=== PATIENT | male | born 1970 | race Caucasian/White ===

== ENCOUNTER 2017-11-30 08:11 | Observation (INO) ==
[2017-11-30 08:42] LABS: Basophils % 0.3 % (0.1-2.0); Eosinophils # 0.3 K/mm3 (0.0-0.4); Eosinophils % 3.8 % (0.1-12.0); Hematocrit 53.5 % (42.0-52.0); Lymphocytes # 1.1 K/mm3 (0.7-4.5); Lymphocytes % 12.5 K/mm3 (10-50); Mean Corpuscular HGB Conc 34.2 g/dL (31.8-35.4); Mean Corpuscular Hemoglobin 29.6 pg (27.0-31.2); Mean Corpuscular Volume 86.6 fl (80-94); Mean Platelet Volume 7.6 fl (7.4-10.4); Monocytes # 0.4 K/mm3 (0.1-1.0); Monocytes % 4.7 % (1.7-9.3); Neutrophils # 6.7 K/mm3 (1.8-7.8); Neutrophils % 78.6 % (37.0-80.0); Platelet Count 260 K/mm3 (142-424); Red Blood Count 6.17 M/mm3 (4.60-6.20); Red Cell Distribution Width 12.3 % (11.5-17.5); White Blood Count 8.6 K/mm3 (4.8-10.8)
[2017-11-30 08:54] LABS: Hemoglobin 18.3 g/dL (14.1-18.0)
--- NOTE | 2017-11-30 08:58 | Emergency Department Note ---
ED Disposition Clinical Impression: Unstable angina, Obesity (BMI 30-39.9), Family history of coronary arteriosclerosis Disposition: Still a Patient Condition on Discharge: Fair - Critical Care Critical Care Time: No Attestation: On 11/30/17, the high probability of a clinically significant, sudden or life threatening deterioration of the following system(s) required my full and direct attention, intervention and personal management. The time I documented below is in addition to time spent performing reported procedures but includes the following listed in this critical care notation. Medical Decision Making - Gary Inquiry Pt receiving controlled substance: No Gary was queried for this patient: No Vital Signs: 11/30/17 08:12 11/30/17 09:12 11/30/17 10:24 Temperature 98.2 F Temperature Source Oral Pulse Rate Pulse Rate [Right Radial] 98 H 80 86 Respiratory Rate 16 18 18 Blood Pressure Blood Pressure [Right Arm] 154/100 133/71 130/86 Blood Pressure Mean [Right Arm] 118 91 100 Blood Pressure Source Blood Pressure Source [Right Arm] Automatic Cuff Automatic Cuff Automatic Cuff Blood Pressure Position Blood Pressure Position [Right Arm] Sitting Sitting Supine 02 Sat by Pulse Oximetry 95 98 97 Oxygen Delivery Method Room Air Room Air Room Air 11/30/17 10:38 Temperature 98.1 F Temperature Source Temporal Artery Scan Pulse Rate 72 Pulse Rate [Right Radial] Respiratory Rate 18 Blood Pressure 142/73 Blood Pressure [Right Arm] Blood Pressure Mean [Right Arm] Blood Pressure Source Automatic Cuff Blood Pressure Source [Right Arm] Blood Pressure Position Sitting Blood Pressure Position [Right Arm] 02 Sat by Pulse Oximetry Oxygen Delivery Method Room Air - Lab Data Lab Results 11/30/17 08:30: WBC 8.6, RBC 6.17, Hgb 18.3 H*, Hct 53.5 H, MCV 86.6, MCH 29.6, MCHC 34.2, RDW 12.3, Plt Count 260, MPV 7.6, Neut % (Auto) 78.6, Lymph % (Auto) 12.5, O'Brien % (Auto) 4.7, Eos % (Auto) 3.8, Baso % (Auto) 0.3, Neut # (Auto) 6.7 , Lymph # (Auto) 1.1, O'Brien # (Auto) 0.4, Eos # (Auto) 0.3, Baso # (Auto) 0.0 11/30/17 08:30: D-Dimer < 100 11/30/17 08:30: Sodium 137, Potassium 4.0, Chloride 100, Carbon Dioxide 25, Anion Gap 16.0 H, BUN 24 H, Creatinine 1.14, Estimated Creat Clear 134, Estimated GFR 69, Est GFR ( Amer) 84, Glucose 125 H, Calcium 8.6, Total Bilirubin 0.6, AST 28, ALT 75, Alkaline Phosphatase 103, Total Creatine Kinase 129, CK-MB (CK-2) 0.8, CK-MB (CK-2) Rel Index 0.6, Troponin I < 0.02, Total Protein 8.0, Albumin 3.9, Globulin 4.1 H, Albumin/Globulin Ratio 1.0 L 11/30/17 08:30: B-Natriuretic Peptide < 5 Result diagrams: 11/30/17 08:30 11/30/17 08:30 Orders (Tests/Meds): ED MEDICATIONS Generic Name Dose Route Start Last Admin Trade Name Freq PRN Reason Stop Dose Admin Diphenhydramine HCl 50 mg 11/30/17 10:45 Benadryl 50mg/1ml Vial IV 11/30/17 10:46 ONCE ONE Fentanyl Citrate 25 mcg 11/30/17 10:45 Fentanyl 250mcg/5ml Vial IV 12/01/17 10:45 Q3MINP PRN Moderate to Severe Pain Fentanyl Citrate 50 mcg 11/30/17 10:45 Fentanyl 250mcg/5ml Vial IV 12/01/17 10:45 Q3MINP PRN Moderate to Severe Pain Flumazenil 0.2 mg 11/30/17 10:45 Romazicon 0.1mg/Ml 5ml Vial IV 11/30/17 23:00 NEEDED PRN Sedation Heparin Sodium (Porcine) 10,000 unit 11/30/17 10:45 Heparin 1,000 Units/Ml 10ml Vial (Senior Radiation Protection Technician) IV 11/30/17 14:45 NEEDED PRN Emergency Box Bag Cutter Heparin Sodium/Sodium Chloride 3,000 unit 11/30/17 10:45 Heparin 1000 Units/500ml Ns (Senior Radiation Protection Technician) IV 11/30/17 10:46 ONCE ONE Sodium Chloride 1,000 mls @ 25 mls/hr 11/30/17 10:45 Sod Chlor 0.9% 1000ml Bag IV 12/01/17 10:45 .Q25H ANNA Lidocaine HCl 20 ml 11/30/17 10:45 Lidocaine 1% 20ml Mdv IJ 11/30/17 10:46 ONCE ONE Midazolam HCl 1 mg 11/30/17 10:45 Midazolam 2mg/2ml Vial IV 12/01/17 10:45 Q3MINP PRN Sedation Midazolam HCl 1 mg 11/30/17 10:45 Midazolam 1mg/Ml 5ml Vial IV 12/01/17 10:45 Q3MINP PRN Sedation Naloxone HCl 0.4 mg 11/30/17 10:45 Narcan 0.4mg/Ml Vial IV 12/01/17 10:45 Q5MINP PRN Decreased respirations Nitroglycerin 800 mcg 11/30/17 10:45 Nitroglycerin 800mcg/8ml Syr (Senior Radiation Protection Technician) IV 12/01/17 10:45 NEEDED PRN Emergency Box Bag Cutter Sodium Chloride 10 ml 11/30/17 10:45 Saline Flush 10ml Syringe IV 12/30/17 10:44 NEEDED PRN Maintain IV Site Verapamil HCl 2.5 mg 11/30/17 10:45 Verapamil 2.5mg/Ml 2ml Vial IV 11/30/17 10:46 ONCE ONE ORDERS Category Date Time Status ECG Request by /Nse Stat Y 11/30/17 08:29 Ordered - Radiology Data #1 Image(s): Chest Image Reviewed: Yes I reviewed the patient's radiology image, Yes I have reviewed radiologist's interpretation Preliminary Findings: Normal/NAD - ECG Data Tracing #1 Sinus tachycardia 106 baseline artifact Q waves in inferior no acute findings. ECG initial impression date: 11/30/17 ECG initial impression time: 08:58 Medical Decision Narrative: The patient remained asymptomatic I obtained his negative dimer for PE and negative troponin for an OK. I discussed with the glaze mixer about his progressive dyspnea and episodes of intermittent chest pain there was high suspicion for unstable angina. He would be admitted to Dr. Calvin and later evaluated by the glaze mixer for possible cardiac catheterization. Patient requests Dr. Calvin to be his primary care physician and Dr. Calvin agreed. Chest Pain HPI - General Chief Complaint: Chest Pain Stated Complaint: Chest pain Time Seen by Provider: 11/30/17 08:20 Mode of Arrival: Ambulatory Limitations: No Limitations Description of Symptoms (Recalled from ER Triage Doc. by RN): Chest Pressure - History of Present Illness HPI narrative: 47 years old white male with no significant past medical history who presented to the ED with intermittent chest pressure type pain radiating to his back since yesterday. He describes the chest pain as pressure type rated 3/10 that lasted for 3 hours yesterday from 4 to 7 PM and 30 minutes this morning from 5 to 5:30 in the morning, it is associated with a burning pain in between the shoulder blades and nausea. the patient reported progressive exertional dyspnea for the past few months. He denies palpitations hemoptysis fever chills or productive sputum. MD complaint: chest pain Onset (ago): day(s) Time: 05:30 Duration: intermittent Activity at onset: during rest Pain location: left chest Severity: mild Severity scale (1-10): 3 Quality: tightness, other (Pressure type pain.) Pain radiation: back Exacerbating factors: nothing Risk Factors for CAD: Family Hx of CAD Treatments prior to or on arrival for Cardiac Chest Pain: none - Related Data Home Medications Medication Instructions Recorded Confirmed Omeprazole Magnesium [Prilosec Otc 20 mg PO DAILY 11/30/17 11/30/17 20mg Tab] Allergies Allergy/AdvReac Type Severity Reaction Status Date / Time NO KNOWN ALLERGIES Allergy Uncoded 08/17/17 15:27 [facility] History I have reviewed the patient's past medical history: Yes Amputation: No Fractures: No - Social History Educational Level: Completed High School Smoking Status: Never smoker Alcohol Intake: never - Psychiatric History Expresses thoughts of harming self/others: None Suicide Plan Description: No Plan ROS Obtained: Yes All systems reviewed & no additional complaints Physical Exam - General General appearance: alert, in no apparent distress, other (Obese and pleasant. ) - Head Head exam: atraumatic, normocephalic, normal inspection - Eye Eye exam: Present: normal appearance, PERRL, EOMI - ENT ENT exam: Present: normal exam, normal oropharynx, mucous membranes moist, TM's normal bilaterally, normal external ear exam - Neck Neck exam: Present: normal inspection, full ROM, trachea midline. Absent: meningismus, lymphadenopathy - Chest Chest inspection: Present: normal inspection, symmetric chest wall rise. Absent : tenderness - Respiratory Respiratory exam: Present: normal lung sounds bilaterally. Absent: respiratory distress - Cardiovascular Cardiovascular exam: Present: regular rate, normal rhythm. Absent: JVD - Abdominal Exam Abdominal exam: Present: soft, normal bowel sounds. Absent: distention, tenderness, guarding - Extremities Exam Extremities exam: Present: normal inspection, full ROM, normal capillary refill. Absent: calf tenderness - Back Exam Back exam: Present: normal inspection. Absent: tenderness - Neurological Exam Neurological exam: Present: alert, oriented X3, CN II-XII intact, motor sensory deficit - Psychiatric Psychiatric exam: Present: normal affect, normal mood - Skin Skin exam: Present: warm, dry, intact, normal color - Lymphatic Lymphatic Findings: no adenopathy
[2017-11-30 09:22] LABS: Alanine Aminotransferase 75 U/L (12-78); Alkaline Phosphatase 103 U/L (46-116); Aspartate Amino Transferase 28 U/L (15-37); Bilirubin,Total 0.6 mg/dL (0.2-1.0); Blood Urea Nitrogen 24 mg/dL (7-18); Calcium 8.6 mg/dL (8.5-10.1); Carbon Dioxide 25 mmol/L (21.0-32.0); Chloride 100 mmol/L (98-107); Glucose 125 mg/dL (74-106); Sodium 137 mmol/L (136-145)
[2017-11-30 10:04] LABS: Albumin Level 3.9 gm/dL (3.4-5.0); Creatine Kinase 129 U/L (39-308); Globulin 4.1 gm/dl (1.3-3.2)
--- NOTE | 2017-11-30 14:10 | History & Physical Report ---
*Admission Date: 11/30/17 <Ariane Segal 11/30/17 14:10> *History of present illness: Mr Avila is a 47 years old white male with no significant past medical history who presented to the ED with intermittent chest pressure type pain radiating to his back since yesterday. He describes the chest pain as pressure type rated 3/10 that lasted for 3 hours yesterday from 4 to 7 PM and 30 minutes this morning from 5 to 5:30 in the morning. The pain is associated with a burning pain in between the shoulder blades and nausea. The patient reported progressive exertional dyspnea for the past few months. He denies palpitations , hemoptysis, fever chills or productive sputum. He was evaluated in the emergency room and felt to have unstable angina with acute coronary syndrome. Patient's EKG was abnormal. His d-dimer was negative and therefore pulmonary embolism was not suspected. With his risk factors for coronary artery disease and with the classic unstable angina like symptoms for prolonged periods of time lasting 3 to 4 hours, patient was taken to the [facility]. At the time of this assessment patient has had his cardiac cath and is resting comfortably in the bed. He denies chest pain and shortness of breath at this point. Cardiac cath is noted to be normal. <Ariane Segal 11/30/17 14:42> [facility] History Medical History: Reports:: Gastroesophageal Reflux Disease(GERD) Denies:: Arrhythmia, Atherosclerotic Heart Disease, Atrial Fibrillation, BPH , Cancer, Cardiomyopathy, Congestive Heart Failure, Chronic Obstructive Pulmonary Disease (COPD), Coronary Artery Disease, Cerebrovascular Accident, Deep Vein Thrombosis, Dementia, Depression, Diabetes Mellitus Type 1, Diabetes Mellitus Type 2, Gall Bladder Disease, Gastrointestinal Bleed, Hiatal Hernia, Hyperlipidemia, Hypertension, Lung Disease, Kidney Stones, Migraine, Myocardial Infarction, Palpitations, Peripheral Artery Disease, Peripheral Vascular Disease , Pulmonary Embolism, Renal Disease, Renal Insufficiency, Seizures, Supraventricular Tachycardia, Transient Ischemic Attacks (TIA) <Ariane Segal 11/30/17 14:42> Other Medical History: Denies: Anemia, Arthritis, Hypothyroidism, Thyroid Disease <Ariane Segal 11/30/17 14:42> Other Surgeries: Yes: Hernia Repair <Ariane Segal 11/30/17 14:42> Amputation: No <Ariane Segal 11/30/17 14:10> Fractures: No <Ariane Segal 11/30/17 14:10> - *Social History Educational Level: Completed High School <Ariane Segal 11/30/17 14:10> Smoking Status: Never smoker <Ariane Segal 11/30/17 14:10> Alcohol Intake: never <Ariane Segal 11/30/17 14:10> - Psychiatric History Expresses thoughts of harming self/others: None <Ariane Segal 11/30/17 14: 10> Suicide Plan Description: No Plan <Ariane Segal 11/30/17 14:10> *Family Hx:: Cancer, Coronary Artery Disease, Diabetes <Ariane Segal 14:42> Comment: Father with pancreatic cancer. Grandparents had both ASCVD and diabetes. <Ariane Segal 11/30/17 14:42> Review of Systems - Constitutional Reports headache(s), Denies body ache(s), Denies chills, Denies fever(s), Denies weakness <Ariane Segal 11/30/17 14:42> - Eyes Denies change in vision <Ariane Segal 11/30/17 14:42> - ENT Reports headache(s), Denies abnormal hearing, Denies ear pain, Denies nasal congestion, Denies sore throat <Ariane Segal 11/30/17 14:42> - *Cardiovascular Reports chest pain, Reports shortness of breath, Denies irregular heart rhythm, Denies leg swelling, Denies rapid, pounding, or irregular heartbeat, Denies fast heart rate <Ariane Segal 11/30/17 14:42> - *Respiratory Reports shortness of breath, Denies chest congestion, Denies cough, Denies coughing up blood <Ariane Segal 11/30/17 14:42> - *Gastrointestinal Reports abdominal pain, Reports heartburn, Denies belching, Denies bloating, Denies change in bowel habits, Denies change in stools, Denies coffee ground vomit, Denies constipation, Denies loose stools, Denies difficulty swallowing, Denies vomiting blood, Denies black, tarry stools, Denies vomiting <Ariane Segal - 11/30/17 14:42> - *Genitourinary Denies difficulty urinating <Ariane Segal - 11/30/17 14:42> - *Musculoskeletal Denies abnormal walking, Denies joint pain, Denies decreased muscle mass < Segal,Ariane - 11/30/17 14:42> - *Neurologic Reports headache(s) (Occasional; relieved with Tylenol.), Denies abnormal walking, Denies abnormal hearing, Denies abnormal speech, Denies behavioral changes, Denies confusion, Denies seizure-like activity, Denies unsteadiness < PhilippAriane - 11/30/17 14:42> Meds Home Medications Medication Instructions Recorded Confirmed Type Omeprazole Magnesium [Prilosec Otc 20 mg PO DAILY 11/30/17 11/30/17 History 20mg Tab] <MarixaMisbah - 11/30/17 17:21> Allergies Allergy/AdvReac Type Severity Reaction Status Date / Time NO KNOWN ALLERGIES Allergy Uncoded 08/17/17 15:27 <Misbah Calvin - 11/30/17 17:21> Exam Vital signs and Labs for Last 24 Hours: Temp Pulse Resp BP Pulse Ox 97.9 F 70 18 123/66 95 11/30/17 16:15 11/30/17 16:15 11/30/17 16:15 11/30/17 16:15 11/30/17 16:15 <MarixaMisbah - 11/30/17 17:21> Temp Pulse Resp BP Pulse Ox 98.0 F 85 18 175/91 96 11/30/17 12:59 11/30/17 12:59 11/30/17 12:59 11/30/17 12:59 11/30/17 12:59 <SegalAriane - 11/30/17 14:10> I & O for Last 24 hours: Intake & Output 11/28/17 11/29/17 11/30/17 12/01/17 11:59 11:59 11:59 11:59 Weight 256 lb 2 oz <Misbah Calvin - 11/30/17 17:21> Intake & Output 11/28/17 11/29/17 11/30/17 12/01/17 11:59 11:59 11:59 11:59 Weight 256 lb 2 oz <Ariane Segal 11/30/17 14:10> Radiology Reports for the Last 24 Hours: 11/30/2017 chest x-ray IMPRESSION: Negative chest. <Ariane Segal 11/30/17 14:12> Narrative: 11/30/2017 heart catheterization IMPRESSION: 1. No angiographic evidence of atherosclerotic heart disease 2. Trivial an clinically insignificant myocardial bridge 3. Normal ejection fraction 4. Normal left ventricular end-diastolic pressure <Ariane Segal 11/30/17 14:12> - Constitutional no acute distress <[facility] 11/30/17 14:42> Comments: Lying comfortably in the bed after cardiac cath. Somewhat drowsy. <[facility] 11/30/17 14:42> - *Routine HEENT Exam Head: Present: normocephalic, atraumatic <[facility] 11/30/17 14:42> Eye: Present: PERRL. Absent: conjunctival icterus, scleral injection <[facility] 11/30/17 14:42> ENT: Present: mucous membranes moist, oropharynx clear <[facility] 14:42> - *Routine Neck Exam Present: supple, full ROM. Absent: carotid bruit, lymphadenopathy <Ariane Segal 11/30/17 14:42> - *Routine Respiratory Exam Present: CTA bilaterally (Anteriorly and posteriorly) <[facility] 14:42> - *Routine Cardiovascular Exam Present: RRR. Absent: murmur, gallop, rubs <Ariane Segal 11/30/17 14:42> - *Routine Abdominal Exam Present: soft, normoactive bowel sounds. Absent: tenderness, guarding < [facility] 11/30/17 14:42> - *Routine Extremities Exam Present: full ROM, pulses intact. Absent: edema, calf tenderness <[facility] 11/30/17 14:42> - *Routine Neurological Exam Present: alert, oriented X3, moving all extremities <Ariane Segal 11/30/17 14:42> Assessment and Plan (1) Atypical chest pain Current visit: Yes Status: Acute Category: Medical Code(s): R07.89 - Other chest pain (2) GERD (gastroesophageal reflux disease) Current visit: Yes Status: Chronic Category: Medical Code(s): K21.9 - Gastro-esophageal reflux disease without esophagitis (3) Family history of coronary arteriosclerosis Current visit: Yes Status: Chronic Category: Medical Code(s): Z82.49 - Family history of ischemic heart disease and other diseases of the circulatory system (4) Obesity (BMI 30-39.9) Current visit: Yes Status: Chronic Category: Medical Code(s): E66.9 - Obesity, unspecified <Misbah Calvin - 11/30/17 17:21> (1) Atypical chest pain Current visit: Yes Status: Acute Category: Medical Code(s): R07.89 - Other chest pain (2) GERD (gastroesophageal reflux disease) Current visit: Yes Status: Chronic Category: Medical Code(s): K21.9 - Gastro-esophageal reflux disease without esophagitis (3) Family history of coronary arteriosclerosis Current visit: Yes Status: Chronic Category: Medical Code(s): Z82.49 - Family history of ischemic heart disease and other diseases of the circulatory system (4) Obesity (BMI 30-39.9) Current visit: Yes Status: Chronic Category: Medical Code(s): E66.9 - Obesity, unspecified <Ariane Segal - 11/30/17 14:25> - Assessment and plan all Dx Assessment and Plan for all problems:: Saw patient, agree with above note. <Misbah Calvin - 11/30/17 17:21> PPI; <Ariane Segal - 11/30/17 14:42>
--- NOTE | 2017-11-30 20:42 | Consult Report ---
History of Present Illness Consult date: 11/30/17 Requesting physician: Misbah Calvin Consult reason: chest pain Chief complaint: Chest pain, SOA Additional Medical History:: 1. GERD 2. Chest pain, 11/2017 [facility], 11/30/2017, ANGIOGRAPHIC RESULTS: 1. The left main artery normal 2. The left anterior descending artery is proximally normal and has a very mild mid myocardial bridge causing a mild amount of systolic compression 3. The circumflex artery dominant normal 4. The right coronary artery nondominant yet still large and normal 5. The KHAN ventriculogram reveals normal 65% 6. The left ventricular end-diastolic pressure normal 10 mmHg IMPRESSION: 1. No angiographic evidence of atherosclerotic heart disease 2. Trivial an clinically insignificant myocardial bridge 3. Normal ejection fraction 4. Normal left ventricular end-diastolic pressure History of present illness: Mr Avila is a 47 years old white male with no significant past medical history who presented to the ED with intermittent chest pressure type pain radiating to his back since yesterday. He describes the chest pain as pressure type rated 3/10 that lasted for 3 hours yesterday from 4 to 7 PM and 30 minutes this morning from 5 to 5:30 in the morning. The pain is associated with a burning pain in between the shoulder blades and nausea. The patient reported progressive exertional dyspnea for the past few months. He denies palpitations , hemoptysis, fever chills or productive sputum. He was evaluated in the emergency room and felt to have unstable angina with acute coronary syndrome. Patient's EKG was abnormal. His d-dimer was negative and therefore pulmonary embolism was not suspected. With his risk factors for coronary artery disease and with the classic unstable angina like symptoms for prolonged periods of time lasting 3 to 4 hours, patient was taken to the [facility]. The above per Ariane Segal APRN for Dr. Calvin. Patient was seen by Dr. Cruz in the ER and taken to the [facility] for UAP symptoms and abnormal EKG. [facility] History Medical History: Reports:: Gastroesophageal Reflux Disease(GERD) Denies:: Arrhythmia, Atherosclerotic Heart Disease, Atrial Fibrillation, BPH , Cancer, Cardiomyopathy, Congestive Heart Failure, Chronic Obstructive Pulmonary Disease (COPD), Coronary Artery Disease, Cerebrovascular Accident, Deep Vein Thrombosis, Dementia, Depression, Diabetes Mellitus Type 1, Diabetes Mellitus Type 2, Gall Bladder Disease, Gastrointestinal Bleed, Hiatal Hernia, Hyperlipidemia, Hypertension, Lung Disease, Kidney Stones, Migraine, Myocardial Infarction, Palpitations, Peripheral Artery Disease, Peripheral Vascular Disease , Pulmonary Embolism, Renal Disease, Renal Insufficiency, Seizures, Supraventricular Tachycardia, Transient Ischemic Attacks (TIA) Other Medical History: Denies: Anemia, Arthritis, Hypothyroidism, Thyroid Disease Other Surgeries: Yes: Hernia Repair Amputation: No Fractures: No - *Social History Educational Level: Completed High School Smoking Status: Never smoker Alcohol Intake: never - Psychiatric History Expresses thoughts of harming self/others: None Suicide Plan Description: No Plan Pschychiatric History:: Denies:: Depression *Family Hx:: Cancer, Coronary Artery Disease, Diabetes Meds Allergies Allergy/AdvReac Type Severity Reaction Status Date / Time NO KNOWN ALLERGIES Allergy Uncoded 08/17/17 15:27 Review of Systems - *Cardiovascular Reports chest pain, Reports shortness of breath with activity - *Respiratory Reports shortness of breath - *Gastrointestinal Reports heartburn - *Musculoskeletal Reports back pain - *Neurologic Reports headache(s) (Occasional; relieved with Tylenol.), Denies abnormal walking, Denies abnormal hearing, Denies abnormal speech, Denies behavioral changes, Denies confusion, Denies seizure-like activity, Denies unsteadiness, Denies weakness Exam Vital signs and Labs for Last 24 Hours: Temp Pulse Resp BP Pulse Ox 99.2 F 80 18 122/75 99 11/30/17 19:15 11/30/17 19:15 11/30/17 19:15 11/30/17 19:15 11/30/17 19:15 I & O for Last 24 hours: Intake & Output 11/28/17 11/29/17 11/30/17 12/01/17 11:59 11:59 11:59 11:59 Intake Total 360 / 360 Balance 360 / 360 Weight 256 lb 2 oz - *Routine Neck Exam Present: thyromegaly - *Routine Respiratory Exam Present: CTA bilaterally - *Routine Cardiovascular Exam Present: RRR, tachycardia Assessment and Plan (1) Atypical chest pain Current visit: Yes Status: Acute Category: Medical Code(s): R07.89 - Other chest pain (2) GERD (gastroesophageal reflux disease) Current visit: Yes Status: Chronic Category: Medical Code(s): K21.9 - Gastro-esophageal reflux disease without esophagitis (3) Family history of coronary arteriosclerosis Current visit: Yes Status: Chronic Category: Medical Code(s): Z82.49 - Family history of ischemic heart disease and other diseases of the circulatory system (4) Obesity (BMI 30-39.9) Current visit: Yes Status: Chronic Category: Medical Code(s): E66.9 - Obesity, unspecified - Assessment and plan all Dx Assessment and Plan for all problems:: Per the cardiac cath, patient has no significant CAD or cardiac etiology for his chest pain. Further workup per Dr. Calvin.
[2017-12-01 05:45] LABS: Basophils % 0.4 % (0.1-2.0); Eosinophils # 0.4 K/mm3 (0.0-0.4); Eosinophils % 8.3 % (0.1-12.0); Hematocrit 48.5 % (42.0-52.0); Lymphocytes # 1.3 K/mm3 (0.7-4.5); Mean Corpuscular HGB Conc 33.7 g/dL (31.8-35.4); Mean Corpuscular Hemoglobin 29.1 pg (27.0-31.2); Mean Corpuscular Volume 86.4 fl (80-94); Mean Platelet Volume 7.9 fl (7.4-10.4); Monocytes # 0.3 K/mm3 (0.1-1.0); Monocytes % 6.6 % (1.7-9.3); Neutrophils % 59.8 % (37.0-80.0); Platelet Count 230 K/mm3 (142-424); Red Blood Count 5.62 M/mm3 (4.60-6.20); Red Cell Distribution Width 12.5 % (11.5-17.5)
[2017-12-01 05:56] LABS: Hemoglobin 16.4 g/dL (14.1-18.0)
[2017-12-01 05:58] LABS: Anion Gap 13.2 mEq/L (5-15); Chol/HDL Ratio 4.9 (1-3.5); Potassium 4.2 mmoL/L (3.5-5.1)
--- NOTE | 2017-12-01 07:41 | Pharmacy Consult Notes ---
[facility] Pharmacy VTE Monitoring - Patient Demographics Admission date: 11/30/17 Report Date: 12/01/17 Time: 07:41 Allergies/Adverse Reactions: Patient Allergies NO KNOWN ALLERGIES Allergy (Uncoded 08/17/17 15:27) Height: 1.75 m Weight: 116.176 kg Patient Problems: Current Active Problems Unstable angina (Acute) Obesity (BMI 30-39.9) (Chronic) Family history of coronary arteriosclerosis (Chronic) Atypical chest pain (Acute) GERD (gastroesophageal reflux disease) (Chronic) - VTE Risk Labs: VTE Related Lab Results Hgb 16.4 g/dL (14.1-18.0) D 12/01/17 05:25 Hct 48.5 % (42.0-52.0) 12/01/17 05:25 Plt Count 230 K/mm3 (142-424) 12/01/17 05:25 BUN 21 mg/dL (7-18) H 12/01/17 05:25 Creatinine 1.02 mg/dL (0.70-1.30) 12/01/17 05:25 Estimated Creat Clear 150 mL/min (0-300) 12/01/17 05:25 VTE Risk Level: Very Low Risk - Prophylaxis VTE Prophylaxis Ordered?: Yes Types of VTE Prophylaxis: TEDS Knee High Location of Applied Device: Bilateral Lower Extremeties - VTE Diagnosis Confirmed Treatment or plan recommended: Continue Current Treatment
--- NOTE | 2017-12-01 07:43 | Progress Note ---
<PhilippAriane - Last Filed: 12/01/17 07:40> Internal Medicine - PN: Subj *Date: 12/01/17 *Time: 07:40 Interval history: Doing well this a.m. Ready to go home. Slept at intervals. Denies chest pain and shortness of breath. Eating without difficulty. Has ambulated in the room without difficulty Exam Vital signs and Labs for Last 24 Hours: Temp Pulse Resp BP Pulse Ox 97.7 F 57 L 18 112/52 98 12/01/17 04:00 12/01/17 04:00 12/01/17 04:00 12/01/17 04:00 12/01/17 04:00 Laboratory Results - last 24 hr 12/01/17 05:25: WBC 5.0 D, RBC 5.62, Hgb 16.4 D, Hct 48.5, MCV 86.4, MCH 29.1 , MCHC 33.7, RDW 12.5, Plt Count 230, MPV 7.9, Neut % (Auto) 59.8, Lymph % (Auto ) 25.0, [place] % (Auto) 6.6, Eos % (Auto) 8.3, Baso % (Auto) 0.4, Neut # (Auto) 3.0, Lymph # (Auto) 1.3, [place] # (Auto) 0.3, Eos # (Auto) 0.4, Baso # (Auto) 0.0 12/01/17 05:25: Sodium 138, Potassium 4.2, Chloride 104, Carbon Dioxide 25, Anion Gap 13.2, BUN 21 H, Creatinine 1.02, Estimated Creat Clear 150, Estimated GFR 79, Est GFR ( Amer) 96, Glucose 110 H, Triglycerides 177, Cholesterol 161, LDL Cholesterol 93, VLDL Cholesterol 35, HDL Cholesterol 33, Cholesterol/HDL Ratio 4.9 H I & O for Last 24 hours: Intake & Output 11/28/17 11/29/17 11/30/17 12/01/17 11:59 11:59 11:59 11:59 Intake Total 360 / 360 Output Total 400 / 400 Balance -40 / -40 Weight 256 lb 2 oz - Constitutional no acute distress Comments: Sitting on bedside eating his breakfast - Routine Chest/Breast/Axilla Exam Chest wall: Absent: tenderness - *Routine Respiratory Exam Present: CTA bilaterally (Anteriorly and posteriorly) - *Routine Cardiovascular Exam Present: RRR Comments: Monitor showing normal sinus rhythm - *Routine Abdominal Exam Present: soft, normoactive bowel sounds. Absent: tenderness - *Routine Extremities Exam Absent: edema, calf tenderness - *Routine Neurological Exam Present: alert, oriented X3 Assessment and Plan (1) Atypical chest pain Current visit: Yes Status: Acute Category: Medical Code(s): R07.89 - Other chest pain (2) GERD (gastroesophageal reflux disease) Current visit: Yes Status: Chronic Category: Medical Code(s): K21.9 - Gastro-esophageal reflux disease without esophagitis (3) Family history of coronary arteriosclerosis Current visit: Yes Status: Chronic Category: Medical Code(s): Z82.49 - Family history of ischemic heart disease and other diseases of the circulatory system (4) Obesity (BMI 30-39.9) Current visit: Yes Status: Chronic Category: Medical Code(s): E66.9 - Obesity, unspecified - Assessment and plan all Dx Assessment and Plan for all problems:: PPI. Discharge home today <Misbah Calvin - Last Filed: 12/01/17 08:11> Internal Medicine - PN: Subj *Date: 12/01/17 *Time: 08:10 Exam Vital signs and Labs for Last 24 Hours: Temp Pulse Resp BP Pulse Ox 97.6 F 63 18 120/63 95 12/01/17 07:49 12/01/17 07:49 12/01/17 07:49 12/01/17 07:49 12/01/17 07:49 Laboratory Results - last 24 hr 12/01/17 05:25: WBC 5.0 D, RBC 5.62, Hgb 16.4 D, Hct 48.5, MCV 86.4, MCH 29.1 , MCHC 33.7, RDW 12.5, Plt Count 230, MPV 7.9, Neut % (Auto) 59.8, Lymph % (Auto ) 25.0, [place] % (Auto) 6.6, Eos % (Auto) 8.3, Baso % (Auto) 0.4, Neut # (Auto) 3.0, Lymph # (Auto) 1.3, [place] # (Auto) 0.3, Eos # (Auto) 0.4, Baso # (Auto) 0.0 12/01/17 05:25: Sodium 138, Potassium 4.2, Chloride 104, Carbon Dioxide 25, Anion Gap 13.2, BUN 21 H, Creatinine 1.02, Estimated Creat Clear 150, Estimated GFR 79, Est GFR ( Amer) 96, Glucose 110 H, Triglycerides 177, Cholesterol 161, LDL Cholesterol 93, VLDL Cholesterol 35, HDL Cholesterol 33, Cholesterol/HDL Ratio 4.9 H I & O for Last 24 hours: Intake & Output 11/28/17 11/29/17 11/30/17 12/01/17 11:59 11:59 11:59 11:59 Intake Total 720 / 720 Output Total 400 / 400 Balance 320 / 320 Weight 256 lb 2 oz Assessment and Plan (1) Atypical chest pain Current visit: Yes Status: Acute Category: Medical Code(s): R07.89 - Other chest pain (2) GERD (gastroesophageal reflux disease) Current visit: Yes Status: Chronic Category: Medical Code(s): K21.9 - Gastro-esophageal reflux disease without esophagitis (3) Family history of coronary arteriosclerosis Current visit: Yes Status: Chronic Category: Medical Code(s): Z82.49 - Family history of ischemic heart disease and other diseases of the circulatory system (4) Obesity (BMI 30-39.9) Current visit: Yes Status: Chronic Category: Medical Code(s): E66.9 - Obesity, unspecified - Assessment and plan all Dx Assessment and Plan for all problems:: Saw patient, agree with above note, OK to discharge today, work/lifting restrictions per Dr. Cruz.
[2017-12-01 07:50] VITALS: BP 120/63
--- NOTE | 2017-12-01 08:41 | Progress Note ---
Subjective Date: 12/01/17 Time: 08:38 Principal diagnosis: chest pain Interval history: 47 yo WM up in room in NAD. No further chest pains. Wants to go home. 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 Exam Vital signs and Labs for Last 24 Hours: Temp Pulse Resp BP Pulse Ox 97.6 F 63 18 120/63 95 12/01/17 07:49 12/01/17 07:49 12/01/17 07:49 12/01/17 07:49 12/01/17 07:49 Laboratory Results - last 24 hr 12/01/17 05:25: WBC 5.0 D, RBC 5.62, Hgb 16.4 D, Hct 48.5, MCV 86.4, MCH 29.1 , MCHC 33.7, RDW 12.5, Plt Count 230, MPV 7.9, Neut % (Auto) 59.8, Lymph % (Auto ) 25.0, [place] % (Auto) 6.6, Eos % (Auto) 8.3, Baso % (Auto) 0.4, Neut # (Auto) 3.0, Lymph # (Auto) 1.3, [place] # (Auto) 0.3, Eos # (Auto) 0.4, Baso # (Auto) 0.0 12/01/17 05:25: Sodium 138, Potassium 4.2, Chloride 104, Carbon Dioxide 25, Anion Gap 13.2, BUN 21 H, Creatinine 1.02, Estimated Creat Clear 150, Estimated GFR 79, Est GFR ( Amer) 96, Glucose 110 H, Triglycerides 177, Cholesterol 161, LDL Cholesterol 93, VLDL Cholesterol 35, HDL Cholesterol 33, Cholesterol/HDL Ratio 4.9 H I & O for Last 24 hours: Intake & Output 11/28/17 11/29/17 11/30/17 12/01/17 11:59 11:59 11:59 11:59 Intake Total 720 / 720 Output Total 400 / 400 Balance 320 / 320 Weight 256 lb 2 oz - *Routine Respiratory Exam Present: CTA bilaterally - *Routine Cardiovascular Exam Present: RRR - *Routine Extremities Exam Comments: right wrist looks good. Pulse intact. Progress Note: A&P (1) Atypical chest pain Status: Acute Current Visit: Yes (2) GERD (gastroesophageal reflux disease) Status: Chronic Current Visit: Yes (3) Family history of coronary arteriosclerosis Status: Chronic Current Visit: Yes (4) Obesity (BMI 30-39.9) Status: Chronic Current Visit: Yes Assessment and Plan for All Diagnoses:: Follow up in one week. Off work until follow up next week due to physical nature of work and need to lift greater than 30 lbs.
--- NOTE | 2017-12-01 13:29 | Discharge Summary ---
General - General Admission date: 11/30/17 Discharge date: 12/01/17 HPI HPI: Mr Avila is a 47 years old white male with no significant past medical history who presented to the ED with intermittent chest pressure type pain radiating to his back since yesterday. He describes the chest pain as pressure type rated 3/10 that lasted for 3 hours yesterday from 4 to 7 PM and 30 minutes this morning from 5 to 5:30 in the morning. The pain is associated with a burning pain in between the shoulder blades and nausea. The patient reported progressive exertional dyspnea for the past few months. He denies palpitations , hemoptysis, fever chills or productive sputum. He was evaluated in the emergency room and felt to have unstable angina with acute coronary syndrome. Patient's EKG was abnormal. His d-dimer was negative and therefore pulmonary embolism was not suspected. With his risk factors for coronary artery disease and with the classic unstable angina like symptoms for prolonged periods of time lasting 3 to 4 hours, patient was taken to the Technology Teacher. At the time of this assessment patient has had his cardiac cath and is resting comfortably in the bed. He denies chest pain and shortness of breath at this point. Cardiac cath is noted to be normal. Hospital Course Hospital Course: Per the cardiac cath, patient had no significant CAD or cardiac etiology for his chest pain. The patient was started on a PPI. He had no further CP. He was stable to be discharged home and will follow up in one week with cardiology. He will need to remain off work until follow up next week due to physical nature of work and need to lift greater than 30 lbs. Objective Vital signs: Temp Pulse Resp BP Pulse Ox 97.6 F 60 18 120/63 95 12/01/17 07:49 12/01/17 08:00 12/01/17 07:49 12/01/17 07:49 12/01/17 07:49 Narrative: - Constitutional no acute distress Comments: Lying comfortably in the bed after cardiac cath. Somewhat drowsy. - *Routine HEENT Exam Head: Present: normocephalic, atraumatic Eye: Present: PERRL. Absent: conjunctival icterus, scleral injection ENT: Present: mucous membranes moist, oropharynx clear - *Routine Neck Exam Present: supple, full ROM. Absent: carotid bruit, lymphadenopathy - *Routine Respiratory Exam Present: CTA bilaterally (Anteriorly and posteriorly) - *Routine Cardiovascular Exam Present: RRR. Absent: murmur, gallop, rubs - *Routine Abdominal Exam Present: soft, normoactive bowel sounds. Absent: tenderness, guarding - *Routine Extremities Exam Present: full ROM, pulses intact. Absent: edema, calf tenderness - *Routine Neurological Exam Present: alert, oriented X3, moving all extremities Results Labs on day of discharge: Labs from last 24 hours 12/01/17 12/01/17 05:25 05:25 WBC 5.0 D RBC 5.62 Hgb 16.4 D Hct 48.5 MCV 86.4 MCH 29.1 MCHC 33.7 RDW 12.5 Plt Count 230 MPV 7.9 Neut % (Auto) 59.8 Lymph % (Auto) 25.0 [place] % (Auto) 6.6 Eos % (Auto) 8.3 Baso % (Auto) 0.4 Neut # (Auto) 3.0 Lymph # (Auto) 1.3 [place] # (Auto) 0.3 Eos # (Auto) 0.4 Baso # (Auto) 0.0 Sodium 138 Potassium 4.2 Chloride 104 Carbon Dioxide 25 Anion Gap 13.2 BUN 21 H Creatinine 1.02 Estimated Creat Clear 150 Estimated GFR 79 Est GFR ( Amer) 96 Glucose 110 H Triglycerides 177 Cholesterol 161 LDL Cholesterol 93 VLDL Cholesterol 35 HDL Cholesterol 33 Cholesterol/HDL Ratio 4.9 H DS: Diagnosis - Discharge Diagnosis (1) Atypical chest pain Status: Acute (2) Unstable angina Status: Acute (3) Family history of coronary arteriosclerosis Status: Chronic (4) GERD (gastroesophageal reflux disease) Status: Chronic (5) Obesity (BMI 30-39.9) Status: Chronic Discharge Plan - Patient Discharge Instructions ACTIVITY: Continue current activity DIET: continue same diet Additional Instructions: Lifting restriction per Dr. Cruz. Patient Instructions: DI for Cardiac Catheterization, DI for Gastroesophageal Reflux Disease (GERD), GERD Diet - Follow up Plan Follow up with: Misbah Calvin MD [Family Provider] - 2 weeks Sal Cruz MD [Staff Physician] - 1 week Disposition: Home, Self-Care Prescriptions/Medication Reconciliation: New Pantoprazole Sodium [Protonix 40mg tablet] 40 mg PO HS #30 tablet.dr Discontinued Omeprazole Magnesium [Prilosec Otc 20mg Tab] 20 mg PO DAILY
== END 2017-12-01 09:08 | disposition home or self-care (01) ==
LOC: ER 08:11 → 2ND 08:11
PROVIDERS: ADMIT Family Medicine; ATTEND Family Medicine

== ENCOUNTER → 2019-10-02 11:51 | Outpatient (CLI) | payer BC, SELFPAY | PROVIDERS: PCP Family Medicine; Visit Provider Family Medicine | DX: G47.10 Hypersomnia, unspecified (principal); R06.83 Snoring; E66.9 Obesity, unspecified; G47.33 Obstructive sleep apnea (adult) (pediatric) | CPT/HCPCS: G0399 ==

== ENCOUNTER → 2019-10-25 09:49 | Outpatient (CLI) | payer BC, SELFPAY ==
--- NOTE | 2019-10-25 09:51 | CA_ITS ---
APPROVED REPORT EXAM: Comprehensive 2D, Doppler, and color-flow Echocardiogram Tile Layer: Ghazala Linda RT(R) Ht: 5 ft 9 in Wt: 226lbs BSA: 2.18 BP: 145/77 mmHg Indications: arrhythmia detected on sleep study, family history of HD, myocardial bridge 2D Dimensions LVOT 2.05 cm (M/F) 1.5-2.5 M-Mode Dimensions RVDd 2.63 cm (0.9-2.6) LVDd 4.35 cm (3.5-5.7) LVDs 3.60 cm (3.5-5.7) IVSd 1.13 cm (0.6-1.1) PWd 0.68 cm (0.6-1.1) EF (Teich) 36.30% FS 17.20% EDV (Teich) 85.40 mL ESV (Teich) 54.40 mL LV Diastology E/A Ratio 1.05 Mitral Valve MV A Velocity 76.00 (40-130 cm/s) Left Ventricle Left atrium is normal size, left ventricle is normal size, there is no concentric left ventricular hypertrophy, visually estimated ejection fraction 55% with no regional wall motion abnormality, diastolic parameters are within normal range. Right Ventricle Right atrium and right ventricular normal size and contractility. Aortic Valve Aortic valve is grossly normal, there is no aortic stenosis or aortic insufficiency. Mitral Valve Mitral valve is grossly normal, there is no mitral stenosis, there is mild mitral regurgitation. Tricuspid Valve Tricuspid valve is grossly normal, there is mild tricuspid regurgitation. Pulmonic Valve Pulmonic valve is poorly visualized. Great Vessels Aortic root is normal size. Pericardium No significant pericardial effusion noted. Conclusion 1. Normal left ventricular size, normal left ventricular systolic function, visually estimated ejection fraction 55% with no regional wall motion abnormality, diastolic parameters are within normal range. 2. Mild mitral and tricuspid regurgitation. 3. No significant pericardial effusion noted. Electronically signed by : Theo Seymour, 10/26/2019 16:15:35
== END ==
PROVIDERS: PCP Family Medicine; Visit Provider Urology
DX: I49.9 Cardiac arrhythmia, unspecified (principal); G47.33 Obstructive sleep apnea (adult) (pediatric)
CPT/HCPCS: 93270; 93306

== ENCOUNTER 2024-04-07 07:11 | Outpatient (CLI) | payer SELFPAY ==
--- NOTE | 2024-04-07 07:27 | CT_ITS ---
APPROVED REPORT Natural Resources Technician: CLINICAL INDICATION Risk assessment TECHNIQUE Image Acquisition: A 128 slice MDCT scanner ([place] View) was used for data acquisition. A noncontrast coronary calcium scan was performed. A CT attenuation threshold of 130 Hounsfield units (HU) was used for the detection of calcium in contiguous voxels of 1 sq mm in area to be counted as individual lesions. A tube voltage of 120 KVp was used. The patient received no medications prior to the coronary calcium CT. Image Reconstruction Transaxial images were reconstructed at 0.67 mm slide thickness. Data was reviewed interactively on an advanced workstation capable of 2 and 3-dimensional displays in all conventional reconstruction formats, including multiplanar reformations, maximum intensity projections, curved multiplanar reformations, and volume rendered reconstructions. When applicable, selected routine images describing the relevant coronary anatomy and pathology were saved and sent to PACS. Complications None Technical Quality Overall image quality was good. Total DLP (Dose-Length Product) is 125.9 mGy-cm. The reported value represents the total of one or more individual components during the CT acquisition of this date and at this time, and as such, the same value may appear in more than one CT report depending on the interpreting/reporting physicians. COMPARISON None FINDINGS CT Coronary Calcium Scoring LMA (Left Main Artery) = 0 LAD (Left Anterior Descending) = 0 LCX (Left Coronary Circumflex) = 0 RCA (Right Coronary Artery) = 3 Total Calcium Score = 3 using the AJ-130 method. There is no identifiable calcification in the aortic valve, mitral annulus or mitral valve, pericardium, or myocardium. IMPRESSION -Minimal coronary artery calcification is present (only in the RCA segment). -Total Calcium Score (Agatston Score) = 3 using the AJ-130 method. -The observed calcium score of 3 is at 59th percentile for subjects of the same age, sex, and race/ethnicity. The interpretation of the calcium heart score is based on the following continuum*: 0 = no calcified plaque detected (risk of coronary artery disease is very low ??? less than 5%) 1-10 = calcium detected in extremely minimal levels (risk of coronary diseases is still low ??? less than 10%) 11-100 = mild levels of plaque detected with certainty (mild or minimal narrowing of heart arteries is likely) 101-400 = definite,at least moderate levels of plaque detected (relatively high risk of a heart attack within 3-5 years) >401-999 = extensive levels of plaque detected (high risk of heart attack, high levels of vascular disease are present, high likelihood of at least one significant coronary narrowing) *The calcium heart score quantifies the burden of coronary calcification/plaque in the coronary arteries. The calcium heart score does not evaluate the presence or the burden of non-calcified (i.e. soft) plaque. The coronary and cardiac findings of this Coronary Calcium CT were reviewed, reported, and signed by Ac Katz MD (Sanitary Engineering Teacher). Conclusion Electronically signed by : Amrita Katz MD 04/10/2024 09:47:42
== END 2024-04-07 23:59 | disposition home or self-care (01) ==
LOC: RAD 07:12
PROVIDERS: PCP Family Medicine; Visit Provider Family Medicine
DX: Z13.6 Encounter for screening for cardiovascular disorders (principal)
CPT/HCPCS: 75571

== ENCOUNTER 2024-05-29 07:32 | Day surgery (SDC) | payer BC, SELFPAY ==
[2024-05-24 09:25] VITALS: BMI 32.5
--- NOTE | 2024-05-24 09:26 | SUR.PREOP ---
Pt is bringing a copy of his med list w/ him day of procedure. At time of phone call he is not around his medication to recall names/dosages.
[2024-05-29] MEDS: LACTATED RINGERS 1000ML 1,000 ML 25 ML IV (08:16)
[2024-05-29 08:17] VITALS: BP 139/84; PULSE 77; RESP 18; TEMP 36.3; O2SAT 97
--- NOTE | 2024-05-29 08:22 | P.PNANES_ITS ---
[facility] Disclaimer: The information contained in this section may have been updated after the patient was seen, as this information can be updated by other users. Medical History History of hyperlipidemia History of diabetes mellitus History of gastroesophageal reflux (GERD) Surgical History History of intestinal surgery Family History Other Family history of CA (myocardial infarction) Family history of colon cancer in father Family history of coronary artery disease Social History (Updated 05/29/24 @ 08:12 by Elke Mccloud RN) Smoking Status: Never smoker second hand exposure: No alcohol intake: never substance use type: denies use current occupational status: employed Travel in the last 8 weeks: None household members: family housing: house [facility] Anesthesia Checklist Patient Identification Patient Identification: Verbal (Name & ) Structural Data Admitted From: Home Planned Operative Procedure/s: colonoscopy NPO Status Verified Time NPO: 00:00 Airway Assessment Mallampati Score:: Class III C-Spine Mobility Assessed: Yes TMJ Mobility Assessed: Yes Dentition: Good Dentition Neurological Assessment Level of Consciousness: Awake, Alert and Appropriate Anesthesia Plan Anesthesia Risk discussed: Yes Anesthesia Plan: Verified ASA Class: II Anesthesia Type: MAC
[2024-05-29 08:43] VITALS: O2SAT 97
--- NOTE | 2024-05-29 08:43 | P.HP_ITS ---
History of Present Illness *Admission Date: 05/29/24 *Reason for visit:: Screening-strong family history *History of present illness: Mr. Tae Cabrera is a 53-year-old gentleman who is here for high risk screening colonoscopy with strong family history of colon cancer. The examination is deemed medically necessary for colonoscopy. The patient has been seen, interviewed and examined prior to the procedure by both myself and the anesthesia provider. [facility] Disclaimer: The information contained in this section may have been updated after the patient was seen, as this information can be updated by other users. Medical History (Updated 05/29/24 @ 08:47 by Harpal Mahan II, MD) History of hyperlipidemia History of diabetes mellitus History of gastroesophageal reflux (GERD) Surgical History History of intestinal surgery Family History Other Family history of [place] (myocardial infarction) Family history of colon cancer in father Family history of coronary artery disease Social History (Updated 05/29/24 @ 08:12 by Elke Mccloud RN) Smoking Status: Never smoker second hand exposure: No alcohol intake: never substance use type: denies use current occupational status: employed Travel in the last 8 weeks: None household members: family housing: house caffeine: Yes Review of Systems Review of Systems Review of systems (narrative): Negative *Cardiovascular Comments: Negative *Gastrointestinal Comments: Negative *Genitourinary Comments: Negative *Musculoskeletal Comments: Negative *Neurologic Comments: Negative Meds Home Medications and Allergies Home Medications ?Medication ?Instructions ?Recorded ?Confirmed ?Type dapagliflozin propaned 5 1 tab PO DAILY 05/29/24 05/29/24 History mg-metformin ER 1,000 mg tablet, ext rel 24hr (Xigduo XR) fenofibrate 160 mg tablet 160 mg PO DAILY 05/29/24 05/29/24 History rosuvastatin 10 mg tablet 10 mg PO DAILY 05/29/24 05/29/24 History New Prescriptions to Start Prescriptions: Allergies Allergy/AdvReac Type Severity Reaction Status Date / Time NO KNOWN ALLERGIES Allergy Unknown Uncoded 05/29/24 08:12 allergy reaction Exam Data for Last 24 hours Vital signs and Labs for Last 24 Hours: Temp Pulse Resp BP Pulse Ox O2 Del Method 97.4 F L 77 18 139/84 97 Room Air 05/29/24 08:17 05/29/24 08:17 05/29/24 08:17 05/29/24 08:17 05/29/24 08:17 05/29/24 08:17 *Routine HEENT Exam Head: Present normocephalic Eye: Present EOMI and PERRL ENT: Present mucous membranes moist *Routine Neck Exam Neck: Present supple *Routine Respiratory Exam Respiratory: Present CTA bilaterally *Routine Cardiovascular Exam Cardiovascular: Present RRR *Routine Abdominal Exam Abdominal: Present soft and normoactive bowel sounds; Absent tenderness *Routine Rectal Exam Rectal:: deferred *Routine Genitalia Exam Genitalia:: deferred *Routine Extremities Exam Extremities: Absent cyanosis, clubbing or edema *Routine Skin Exam Skin: Present warm; Absent rash *Routine Neurological Exam Neurological: Present alert and oriented X3 Assessment and Plan *Assessment and plan (1) Screening for colon cancer: Status: Acute Category: Medical Code(s): Z12.11 - Encounter for screening for malignant neoplasm of colon (2) Family history of colon cancer: Status: Acute Category: Medical Code(s): Z80.0 - Family history of malignant neoplasm of digestive organs Plan A/P: 1. Screening for colon cancer with strong family history of her father and brother) is the preprocedural diagnosis. The patient will be anesthetized/sedated using MAC sedation. The patient has been seen and examined. Cardiac and lung assessment prior to the examination is stable. Proceed with planned colonoscopy
--- NOTE | 2024-05-29 09:06 | P.PCN_ITS ---
[facility] Procedure Note Date: 05/29/24 Time: 09:06 Procedure Note:: Colonoscopy Procedure Report: Colonoscopy with cold snare polypectomy Endoscopist: Harpal Mahan II, MD Referring physician: Misbah Calvin MD Date of Procedure: May 29, 2024 Equipment: Olympus 190 variable stiffness pediatric colonoscope Sedation: MAC sedation Indication: Mr. Avila is a 53-year-old gentleman who is here for initial high risk screening colonoscopy. The patient does state that his father had colon cancer at the age of 57 and his brother had colon cancer at the age of 58. He reports no abdominal pain, weight loss, change in his bowel habits or rectal bleeding. Procedure: Prior to the procedure, a history and physical exam was performed, and patient's medications and allergies were reviewed. The risks, benefits and alternatives of the sedation and procedure were discussed with the patient. All questions were answered and informed consent was obtained. The patient was brought to the procedure room. Patient identification and proposed procedure were verified by the physician and the nurse. The patient was placed in a left lateral decubitus position and the scope was passed under direct vision. Throughout the procedure, the patient's blood pressure, pulse, and oxygen saturations were monitored continuously. The colonoscopy was accomplished without difficulty. The patient tolerated the procedure well. Findings: On digital rectal examination there was normal rectal tone. There were no external hemorrhoids. The prostate was 2+, smooth, soft, symmetric without nodules. The colonoscope was introduced through the anal canal to the rectum and advanced to the cecum. The ileocecal valve and appendiceal orifice were identified. The scope was advanced a short distance into the ileum which appeared grossly normal. The scope was then withdrawn into the colon. There were 3 polyps identified in the colon (cecum x 1 (4 mm) and transverse x 2 (3 and 5 mm)). All of these were removed via cold snare polypectomy. The remaining cecum, ascending, transverse, descending, sigmoid and rectum were grossly normal. There were no mucosal abnormalities identified. Upon retroflexion within the rectum there were grade 1 internal hemorrhoids.The preparation was excellent throughout with [place] Preparation Score of 9. The cecal time was 10 minutes. Impression: 1. Diminutive colonic polyps x 3 2. Grade 1 internal hemorrhoids Plan: I will follow up the polyp pathology and based upon the patient's family history and adenomatous polyps, I would recommend repeat surveillance colonoscopy again in 5 years. I would encourage fiber supplementation on a long-term daily maintenance basis.
[2024-05-29 09:10] VITALS: BP 103/62; PULSE 55; RESP 16; TEMP 36.7; O2SAT 94
[2024-05-29 09:20] VITALS: BP 103/69; PULSE 63; RESP 16; TEMP 36.7; O2SAT 96
[2024-05-29 09:30] VITALS: BP 109/61; PULSE 61; RESP 18; TEMP 36.7; O2SAT 96
[2024-05-29 09:40] VITALS: BP 112/71; PULSE 62; RESP 18; TEMP 36.8; O2SAT 98
[2024-05-30 15:23] LABS: POC Glucose,Bedside 152 (70-110)
== END 2024-05-29 09:40 | disposition home or self-care (01) ==
PROVIDERS: PCP Family Medicine; Visit Provider Internal Medicine Gastroenterology
PROC: (CPT 45385; principal; 2024-05-29 09:00)
DX: Z12.11 Encounter for screening for malignant neoplasm of colon (principal); Z80.0 Family history of malignant neoplasm of digestive organs; K63.5 Polyp of colon; K64.0 First degree hemorrhoids
CPT/HCPCS: 45385; 82962; 99221; J7120